=== PATIENT | female | born 1960 | race Hispanic/Latino ===

== ENCOUNTER 2018-05-25 15:05 | Emergency (ER) | payer OTHER, MEDICAID, SELFPAY ==
[2018-05-25 15:11] VITALS: BP 129/77; PULSE 74; RESP 20; TEMP 36.9; O2SAT 97
--- NOTE | 2018-05-25 15:32 | ED_ITS ---
HPI - URI/Sore Throat General Chief Complaint: Upper Respiratory Symptoms Stated Complaint: No voice, throat feels tight/sore Time Seen by Provider: 05/25/18 15:32 Source: patient Mode of arrival: ambulatory Limitations: no limitations History of Present Illness HPI Narrative: 57-year-old female here for evaluation of sinus congestion, right -sided ear pain, right-sided sinus congestion, right-sided sore throat. She states the symptoms been going on for the past week. No fevers. Has had a cough. Has not tried anything for this. Related Data Previous Rx's Medication Instructions Recorded albuterol sulfate 1 puff INHALATION Q4-6H PRN #18 05/25/18 gram fluticasone [Flonase Allergy 1 spray NASAL DAILY #9.9 gram 05/25/18 Relief] loratadine [Claritin] 10 mg PO DAILY #30 tab 05/25/18 Allergies Allergy/AdvReac Type Severity Reaction Status Date / Time No Known Drug Allergies Allergy Verified 05/25/18 15:12 Review of Systems Constitutional Denies fever(s) ENT Comments: Right-sided sinus pain, right-sided ear pain, right-sided sore throat Cardiovascular Denies dyspnea Respiratory Denies cough and Denies dyspnea Integumentary/Breasts Denies rash Neurologic Denies behavioral changes Psychiatric Denies behavioral changes Hematologic/Lymphatic Comments: Not on anticoagulation PFSH Medical History Healthy adult (Acute) Surgical History No pertinent past surgical history (Acute) Social History marital status: lives independently: Yes Exam Initial Vital Signs Initial Vital Signs: Vital Signs Temperature 98.5 F 05/25/18 15:11 Pulse Rate 74 05/25/18 15:11 Respiratory Rate 20 05/25/18 15:11 Blood Pressure 129/77 05/25/18 15:11 Pulse Oximetry 97 05/25/18 15:11 Const General: cooperative, comfortable, well developed, well groomed and No acute distress HENMT Head: normal to inspection and normocephalic Ears: TM normal on the right (Bulging without erythema) and TM normal on the left Nose: external nose normal Face and sinus: tenderness (Some tenderness to palpation of the right maxillary sinus) Mouth: oral mucosae normal Teeth and gingiva: dentition normal Throat: posterior oropharynx normal Eyes Pupils: PERRL Neck Lymphatic: No lymphadenopathy Resp Effort & Inspection: normal respiratory effort Auscultation: clear to auscultation bilaterally Cardio Rate: regular rate Rhythm: regular rhythm Pulses: radial pulses present Skin Rashes: no rashes Course Vital Signs - 8 hr 05/25/18 15:11 Temperature 98.5 F Pulse Rate 74 Respiratory Rate 20 Blood Pressure 129/77 Pulse Oximetry 97 MDM - URI/Sore Throat MDM Narrative Medical decision making narrative: Patient is nontoxic. Suspect upper respiratory infection causing sinus issues. No indications for antibiotics. Will send home with prescription for decongestants. Patient given return precautions. She expressed understanding and agreement plan. Discharge Plan Departure Patient Disposition: Home Clinical Impression: Upper respiratory infection Instructions: DI for Viral Upper Respiratory Infection -- Adult Activity Restrictions/Additional Instructions: Recommend you take medications as directed. Contact your primary care doctor for follow-up. Return to the emergency department for any new or worsening symptoms Prescriptions: New albuterol sulfate 90 mcg/actuation HFA aerosol inhaler 1 puff INHALATION Q4-6H PRN (Reason: shortness of breath) Qty: 18 RF: 0 fluticasone [Flonase Allergy Relief] 50 mcg/actuation spray,suspension 1 spray NASAL DAILY Qty: 9.9 RF: 0 loratadine [Claritin] 10 mg tablet 10 mg PO DAILY Qty: 30 RF: 0
--- NOTE | 2018-05-25 15:51 | PC.NURSE ---
sinus congestion, with right sided sorethroat, sxs for couple off weeks, sinus congestions, remain smoker.
== END 2018-05-25 15:58 | disposition home or self-care (01) ==
PROVIDERS: Emergency Provider Emergency Medicine
DX: J06.9 Acute upper respiratory infection, unspecified (principal)
CPT/HCPCS: 99282